=== PATIENT | female | born 1990 | race Caucasian/White ===

== ENCOUNTER 2017-10-20 20:08 | Emergency (ER) | payer OTHER ==
[~2017-10-20] VITALS: Ht 157.5 cm; Wt 90.7 kg
[~2017-10-20 20:08] MED LIST: ACYC800 PO; Aspirin EC325 MG PO; GABA300 PO; HYDACE5 PO; IBUP800 PO; Keflex500 MG PO; LORA2 PO; MECL25 PO; NAPR500 PO; NIFE30ER PO; Naprosyn500 MG PO; PANT40 PO; PENVK250 PO; Percocet 5-3251 EACH PO; RXLORA1 PO; SULTRIDS PO; TERC.4TC PV; Ultram50 MG PO; YASMIN
[2017-10-20 22:08] LABS: Influenza A Negative (NEGATIVE); Influenza B Negative (NEGATIVE)
[2017-10-20] MEDS ORDERED: AZIT250 PO (22:11)
[2017-10-20] MEDS ORDERED: ALBU90OI INH (22:11)
== END 2017-10-20 22:26 | disposition home or self-care (01) ==
LOC: ER 20:08
PROVIDERS: Emergency Medicine
DX: J45.901 Unspecified asthma with (acute) exacerbation (principal); F17.210 Nicotine dependence, cigarettes, uncomplicated
CPT/HCPCS: 71046; 87804; 99283

== ENCOUNTER 2017-11-12 11:14 | Emergency (ER) | payer OTHER ==
[~2017-11-12] VITALS: Ht 154.9 cm; Wt 86.2 kg
[~2017-11-12 11:14] MED LIST changes: +ALBU90OI INH; +AZIT250 PO
[2017-11-12 12:51] LABS: BASOPHILS ABSOLUTE AUTO 0.04 K/mm3 (0.00-0.23); BASOPHILS PERCENT AUTO 0 % (0-2); EOSINOPHILS ABSOLUTE AUTO 0.04 K/mm3 (0.00-0.68); EOSINOPHILS PERCENT AUTO 0 % (0-6); Hematocrit 41.1 % (33.0-51.0); Hemoglobin 13.7 g/dL (11.5-16.0); IMMATURE GRAN ABSOLUTE AUTO 0.08 K/mm3 (0.00-0.10); IMMATURE GRAN PERCENT AUTO 1 % (0-1); LYMPHOCYTES PERCENT AUTO 22 % (21-46); MONOCYTES ABSOLUTE AUTO 0.79 K/mm3 (0.16-1.47); MONOCYTES PERCENT AUTO 8 % (4-13); Mean Corpuscular HGB 32.2 pg (26.0-34.0); Mean Corpuscular HGB Conc 33.3 g/dL (31.5-36.5); Mean Corpuscular Volume 97 fL (80-100); Mean Platelet Volume 9.2 fL (9.1-12.4); NEUTROPHILS ABSOLUTE AUTO 7.22 K/mm3 (1.96-9.15); NEUTROPHILS PERCENT AUTO 69 % (41-73); Platelet Count 308 K/mm3 (150-400); RDW Coefficient Variation 12.1 % (11.7-14.2); RDW Standard Deviation 43.2 fL (35.1-46.3); Red Blood Cell Count 4.25 M/mm3 (3.80-5.20); White Blood Cell Count 10.47 K/mm3 (4.00-11.30)
[2017-11-12 13:14] LABS: Alanine Aminotransfer (ALT/SGP 36 U/L (12-78); Albumin/Globulin Ratio 1.1 (0.8-1.8); Alk Phos 69 U/L (50-136); Anion Gap 8 mmol/L (6-16); Aspartate Aminotrans (AST/SGOT 20 U/L (12-37); Bilirubin, Total 0.5 mg/dL (0.1-1.0); Blood Urea Nitrogen 6 mg/dL (8-24); Bun/Creatinine Ratio 10.5 (12.0-20.0); CO2, Blood 24 mmol/L (21-32); Chloride, Blood 108 mmol/L (98-108); Creatinine, Blood 0.57 mg/dL (0.40-1.00); Globulin, Blood 3.7 g/dL (2.2-4.0); Glomerular Filtration Rate >60 (60-); Glucose, Blood 98 mg/dL (70-99); Potassium, Blood 4.1 mmol/L (3.5-5.5); Sodium, Blood 140 mmol/L (136-145); Total Protein, Blood 7.7 g/dL (6.4-8.2); Troponin I <0.015 ng/mL (0.000-0.040)
[2017-11-12] MEDS ORDERED: Naproxen375 MG PO (14:02)
[2017-11-12] MEDS ORDERED: LIDO700A20 TOP (14:02)
[2017-11-12] MEDS ORDERED: Pepcid20 MG PO (14:02)
== END 2017-11-12 14:31 | disposition home or self-care (01) ==
LOC: ER 11:14
PROVIDERS: Emergency Medicine
DX: R07.89 Other chest pain (principal); R10.11 Right upper quadrant pain; J45.909 Unspecified asthma, uncomplicated; F17.200 Nicotine dependence, unspecified, uncomplicated
CPT/HCPCS: 36415; 71046; 76705; 80053; 83690; 84484; 84703; 85025; 93005; 93010; 99284

== ENCOUNTER 2018-03-31 21:40 | Observation (INO) | payer OTHER ==
[~2018-03-31] VITALS: Ht 177.8 cm; Wt 108.9 kg
[~2018-03-31 21:40] MED LIST changes: +LIDO700A20 TOP; +Naproxen375 MG PO; +Pepcid20 MG PO
[2018-03-31 21:55] LABS: BASOPHILS ABSOLUTE AUTO 0.07 K/mm3 (0.00-0.23); BASOPHILS PERCENT AUTO 1 % (0-2); EOSINOPHILS ABSOLUTE AUTO 0.18 K/mm3 (0.00-0.68); EOSINOPHILS PERCENT AUTO 1 % (0-6); Hematocrit 47.7 % (33.0-51.0); Hemoglobin 15.8 g/dL (11.5-16.0); IMMATURE GRAN ABSOLUTE AUTO 0.08 K/mm3 (0.00-0.10); IMMATURE GRAN PERCENT AUTO 1 % (0-1); LYMPHOCYTES ABSOLUTE AUTO 5.61 K/mm3 (0.84-5.20); LYMPHOCYTES PERCENT AUTO 41 % (21-46); MONOCYTES ABSOLUTE AUTO 0.69 K/mm3 (0.16-1.47); MONOCYTES PERCENT AUTO 5 % (4-13); Mean Corpuscular HGB Conc 33.1 g/dL (31.5-36.5); Mean Corpuscular Volume 97 fL (80-100); Mean Platelet Volume 9.3 fL (9.1-12.4); NEUTROPHILS ABSOLUTE AUTO 6.96 K/mm3 (1.96-9.15); NEUTROPHILS PERCENT AUTO 51 % (41-73); Platelet Count 431 K/mm3 (150-400); RDW Coefficient Variation 12.1 % (11.7-14.2); RDW Standard Deviation 43.1 fL (35.1-46.3); Red Blood Cell Count 4.94 M/mm3 (3.80-5.20); White Blood Cell Count 13.59 K/mm3 (4.00-11.30)
[2018-03-31 22:15] LABS: Source, Urine Voided
[2018-03-31 22:17] LABS: Ethanol (Alcohol), Blood, Med 297 mg/dL; Salicylate 5.2 mg/dL (2.8-20.0)
[2018-03-31 22:18] LABS: Alanine Aminotransfer (ALT/SGP 47 U/L (12-78); Albumin, Blood 4.2 g/dL (3.4-5.0); Albumin/Globulin Ratio 1.1 (0.8-1.8); Alk Phos 91 U/L (50-136); Anion Gap 15 mmol/L (6-16); Aspartate Aminotrans (AST/SGOT 31 U/L (12-37); Bilirubin, Total 0.2 mg/dL (0.1-1.0); Blood Urea Nitrogen 8 mg/dL (8-24); Bun/Creatinine Ratio 9.5 (12.0-20.0); CO2, Blood 18 mmol/L (21-32); Calcium, Blood 8.7 mg/dL (8.5-10.1); Chloride, Blood 113 mmol/L (98-108); Creatinine, Blood 0.84 mg/dL (0.40-1.00); Globulin, Blood 3.7 g/dL (2.2-4.0); Glomerular Filtration Rate >60 (60-); Glucose, Blood 113 mg/dL (70-99); Potassium, Blood 4.1 mmol/L (3.5-5.5); Sodium, Blood 146 mmol/L (136-145); Total Protein, Blood 7.9 g/dL (6.4-8.2)
[2018-03-31 22:19] LABS: Bilirubin, Urine Neg (Neg); Blood, Urine Neg (Neg); Glucose Qualitative, Urine Neg (Neg); Ketones, Urine Neg (Neg); Leukocyte Esterase, Urine Neg (Neg); Nitrite, Urine Neg (Neg); Protein, Urine Neg (Neg); Urobilinogen, Urine NORM (Normal)
[2018-03-31 22:23] LABS: Appearance, Urine Clear (Clear); Color, Urine Yellow (P-Yellow)
[2018-03-31 22:23] LABS: Acetaminophen, Random <2.0 ug/mL (10.0-30.0)
[2018-03-31 22:29] LABS: U Amphetamine Screen Not Detected; U Barbituate Screen Not Detected; U Benzodiazapine Screen Not Detected; U Buprenorphine Screen Not Detected; U Cannabinoids Screen DETECTED; U Cocaine Screen Not Detected; U Methadone Screen Not Detected; U Methamphetamine Screen Not Detected; U Opiates Screen Not Detected; U Oxycodone Screen Not Detected; U Phencyclidine Screen Not Detected; U Propoxyphene Screen Not Detected
== END 2018-04-01 11:21 | disposition home or self-care (01) ==
LOC: ER 21:40 → EOR 21:41
PROVIDERS: Emergency Medicine
DX: R45.851 Suicidal ideations (principal); R45.1 Restlessness and agitation; F10.10 Alcohol abuse, uncomplicated; J45.909 Unspecified asthma, uncomplicated; F17.200 Nicotine dependence, unspecified, uncomplicated; Z79.899 Other long term (current) drug therapy; Y90.8 Blood alcohol level of 240 mg/100 ml or more
CPT/HCPCS: 36415; 51701; 80053; 81003; 81025; 84443; 85025; 96374; 96375; 99285-25; G0378; G0480; J1200; J1630; J2060

== ENCOUNTER 2018-10-21 09:46 | Emergency (ER) | payer OTHER ==
[~2018-10-21] VITALS: Ht 154.9 cm; Wt 72.6 kg
[2018-10-21] MEDS ORDERED: BRINTELLIX10 MG PO (10:15)
[2018-10-21] MEDS ORDERED: CEPH500 PO (10:36)
== END 2018-10-21 10:40 | disposition home or self-care (01) ==
LOC: ER 09:46
DX: L03.115 Cellulitis of right lower limb (principal); Z79.899 Other long term (current) drug therapy; J45.909 Unspecified asthma, uncomplicated; F17.210 Nicotine dependence, cigarettes, uncomplicated
CPT/HCPCS: 99282

== ENCOUNTER → 2018-10-22 | Outpatient (CLI) | payer OTHER ==
[~2018-10-22] MED LIST changes: +BRINTELLIX10 MG PO; +CEPH500 PO
== END | disposition home or self-care (01) ==
LOC: LAB EV 11:00 → LAB SHORT 11:00
DX: L03.115 Cellulitis of right lower limb (principal)
CPT/HCPCS: 87070; 87077; 87147; 87186; 87205

== ENCOUNTER 2019-07-27 21:56 | Emergency (ER) | payer OTHER ==
[~2019-07-27] VITALS: Ht 154.9 cm; Wt 63.5 kg
[~2019-07-27 21:56] MED LIST changes: +Atarax10 MG; +BUSP10 PO; +DULO30 PO; +ONDA4ODT MM; +TRAZ50
[2019-07-27] MEDS ORDERED: ZOLOFT50 MG PO (22:19)
[2019-07-27] MEDS ORDERED: CLON.1 PO (22:19)
[2019-07-27] MEDS ORDERED: ARIPIPRAZOLE5 MG PO (22:19)
[2019-07-27] MEDS ORDERED: Vibramycin100 MG PO (22:30)
== END 2019-07-27 23:12 | disposition home or self-care (01) ==
LOC: ER 21:56
DX: L03.113 Cellulitis of right upper limb (principal); F17.210 Nicotine dependence, cigarettes, uncomplicated; Z79.899 Other long term (current) drug therapy
CPT/HCPCS: 99283

== ENCOUNTER → 2019-08-20 | Outpatient (CLI) | payer OTHER ==
[~2019-08-20] MED LIST changes: +ARIPIPRAZOLE5 MG PO; +Bactrim 400-801 EACH PO; +CLON.1 PO; +TRAZ50 PO; +Vibramycin100 MG PO; +ZOLOFT50 MG PO
[2019-08-20 15:23] LABS: G. vaginalis (DNA Probe) Positive (NEGATIVE); T. vaginalis (DNA Probe) Negative (NEGATIVE)
[2019-08-20 15:24] LABS: Candida species (DNA Probe) Negative (NEGATIVE)
[2019-08-22 15:07] LABS: HPV 16 Negative (Negative); HPV 18 Negative (Negative); HPV OTHER HR TYPES Negative (Negative)
[2019-08-22 21:06] LABS: CHLAMYDIA TRACHOMATIS, NAA Negative (Negative); NEISSERIA GONORRHOEAE, NAA Negative (Negative)
== END | disposition home or self-care (01) ==
LOC: LAB 09:50 → LAB SHORT 09:50
PROVIDERS: Student in an Organized Health Care Education/Training Program
DX: Z11.3 Encounter for screening for infections with a predominantly sexual mode of transmission (principal); Z12.4 Encounter for screening for malignant neoplasm of cervix; N89.8 Other specified noninflammatory disorders of vagina
CPT/HCPCS: 87480; 87491; 87510; 87591; 87624; 87660; G0123

== ENCOUNTER 2019-09-15 01:07 | Emergency (ER) | payer OTHER ==
[~2019-09-15] VITALS: Ht 154.9 cm; Wt 68.0 kg
[~2019-09-15 01:07] MED LIST changes: -Bactrim 400-801 EACH PO; -TRAZ50 PO
[2019-09-15] MEDS ORDERED: Bactrim 400-801 EACH PO (03:09)
[2019-09-15] MEDS ORDERED: TRAZ50 PO (23:48)
== END 2019-09-15 03:22 | disposition home or self-care (01) ==
LOC: ER 01:07
DX: L02.413 Cutaneous abscess of right upper limb (principal); F19.10 Other psychoactive substance abuse, uncomplicated; K21.9 Gastro-esophageal reflux disease without esophagitis; F17.210 Nicotine dependence, cigarettes, uncomplicated; Z79.899 Other long term (current) drug therapy
CPT/HCPCS: 10061; 99282-25; A9270-GY

== ENCOUNTER 2019-09-15 22:47 | Emergency (ER) | payer OTHER ==
[~2019-09-15] VITALS: Ht 154.9 cm; Wt 68.0 kg
[~2019-09-15 22:47] MED LIST changes: +Bactrim 400-801 EACH PO
[2019-09-15] MEDS ORDERED: TRAZ50 PO (23:48)
== END 2019-09-16 00:02 | disposition home or self-care (01) ==
LOC: ER 22:47
DX: Z48.817 Encounter for surgical aftercare following surgery on the skin and subcutaneous tissue (principal); Z79.899 Other long term (current) drug therapy; F17.210 Nicotine dependence, cigarettes, uncomplicated
CPT/HCPCS: 99282

== ENCOUNTER 2020-02-07 21:36 | Inpatient (IN) | payer OTHER ==
[~2020-02-07] VITALS: Ht 154.9 cm; Wt 75.5 kg
[~2020-02-07 21:36] MED LIST changes: +TRAZ50 PO
[2020-02-07] MEDS ORDERED: BUSP10 PO (22:01)
[2020-02-07 23:13] LABS: Alanine Aminotransfer (ALT/SGP 22 U/L (12-78); Albumin, Blood 3.1 g/dL (3.4-5.0); Albumin/Globulin Ratio 0.9 (0.8-1.8); Alk Phos 72 U/L (50-136); Anion Gap 8 mmol/L (6-16); Aspartate Aminotrans (AST/SGOT 12 U/L (12-37); Beta HCG, Quantitative, Serum <1 mIU/mL (0-3); Bilirubin, Total 0.1 mg/dL (0.1-1.0); Blood Urea Nitrogen 9 mg/dL (8-24); Bun/Creatinine Ratio 14.8 (12.0-20.0); CO2, Blood 24 mmol/L (21-32); Calcium, Blood 8.2 mg/dL (8.5-10.1); Chloride, Blood 110 mmol/L (98-108); Creatinine, Blood 0.61 mg/dL (0.40-1.00); Globulin, Blood 3.4 g/dL (2.2-4.0); Glomerular Filtration Rate >60 (60-); Glucose, Blood 94 mg/dL (70-99); Potassium, Blood 3.8 mmol/L (3.5-5.5); Sodium, Blood 142 mmol/L (136-145); Total Protein, Blood 6.5 g/dL (6.4-8.2)
[2020-02-07 23:17] LABS: BASOPHILS ABSOLUTE AUTO 0.02 K/mm3 (0.00-0.23); BASOPHILS PERCENT AUTO 0 % (0-2); EOSINOPHILS ABSOLUTE AUTO 0.61 K/mm3 (0.00-0.68); EOSINOPHILS PERCENT AUTO 4 % (0-6); Hematocrit 40.3 % (33.0-51.0); Hemoglobin 12.9 g/dL (11.5-16.0); IMMATURE GRAN ABSOLUTE AUTO 0.06 K/mm3 (0.00-0.10); IMMATURE GRAN PERCENT AUTO 0 % (0-1); LYMPHOCYTES ABSOLUTE AUTO 2.72 K/mm3 (0.84-5.20); LYMPHOCYTES PERCENT AUTO 19 % (21-46); MONOCYTES ABSOLUTE AUTO 1.01 K/mm3 (0.16-1.47); MONOCYTES PERCENT AUTO 7 % (4-13); Mean Corpuscular Volume 97 fL (80-100); NEUTROPHILS ABSOLUTE AUTO 9.83 K/mm3 (1.96-9.15); NEUTROPHILS PERCENT AUTO 69 % (41-73); Platelet Count 307 K/mm3 (150-400); RDW Coefficient Variation 12.3 % (11.7-14.2); Red Blood Cell Count 4.16 M/mm3 (3.80-5.20); White Blood Cell Count 14.25 K/mm3 (4.00-11.30)
--- NOTE | 2020-02-08 03:02 | NUR ---
ASSUMED CARE OF PATIENT FROM GIRISH LOPEZ @ 0288.
--- NOTE | 2020-02-08 03:20 | NUR ---
2346 ER DOC UP TO PLACE CENTRAL LINE.
--- NOTE | 2020-02-08 03:45 | NUR ---
0345 CENTRAL LINE PLACED. AWAINTING CXR AND READ FROM DOC. ALERTED DYER ASSISTANT OF STAT ORDER
[2020-02-08] MEDS ORDERED: Loxapine5 MG PO (04:11)
--- NOTE | 2020-02-08 04:15 | NUR ---
RECEIVED CALL FROM DR PAT LOUIS TO USE CENTRAL LINE AFTER VERIFYING PLACEMENT VIA CXR.
--- NOTE | 2020-02-08 04:36 | NUR ---
0436 PATIENT D/C'D FROM CURRENT ROOM TO SURGICAL SUITE FOR SURGERY
--- NOTE | 2020-02-08 04:45 | NUR ---
044 ALL PATIENT BELONGINGS TAKEN TO ROOM 211]
--- NOTE | 2020-02-08 05:10 | NUR ---
0510 REPORT GIVEN TO ZORAN STOUT, ICU
--- NOTE | 2020-02-08 06:48 | NUR ---
REPORT GIVEN TO NETTE SALES ASSOCIATE KEY HOLDER. PT WAS TRANSFERED TO 211 VIA STRETCHER. PT TRANSFERD SELF TO UNIT BED. PT A&0X3, ABLE TO FOLLOW DIRECTIONS. PT IN SIT WITH HR IN THE 110-120'S. PT ON RA WITH SPO2 AT 97%. PT ORIENTED TO ROOM.
--- NOTE | 2020-02-08 07:00 | NUR ---
PT ARRIVED TO ROOM FROM ICU RECOVERY. PT A/O, VSS. DRESSING CDI, CAP REFILL WNL, PT DENIES N/T, REP PAIN ANDERS. PT ORIENTED TO ROOM/CALL LIGHT. BEDSIDE REPORT GIVEN TO DAY RN.
--- NOTE | 2020-02-08 07:31 | NUR ---
ASSUMED PATIENT CARE. PATIENT RESTING COMFORTABLY IN BED. DRESSING IN PLACE, EXTREMITY SENSATION AND CAP REFILL CHECKED AND PRESENT. NO NEW DISCHARGE NOTED. PATIENT CONVERSING WITH NURSING STAFF, NO SIGNS OF ACUTE DISTRESS. WCTM.
--- NOTE | 2020-02-08 18:38 | NUR ---
PATIENT WENT TO OR TODAY FOR I&D. VSS, PAIN WELL MANAGED WITH IV TORODOL. INCREASED REDNESS NOTED AT PROXIMAL END OF LUE BANDAGING, NEW BORDER OUTLINED WITH MARKER THIS SHIFT. LUE SENSATION INTACT. PATIENT TOLERATED PO INTAKE WELL THIS SHIFT. PLAN IS TO CONTINUE IV ABX AND MONITOR FOR S/S OF INFECTION.
[2020-02-08 20:26] LABS: Vancomycin, Trough 9.3 ug/mL (5.0-10.0)
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
[2020-02-09 04:31] LABS: BASOPHILS ABSOLUTE AUTO 0.03 K/mm3 (0.00-0.23); BASOPHILS PERCENT AUTO 0 % (0-2); EOSINOPHILS PERCENT AUTO 1 % (0-6); Hematocrit 32.8 % (33.0-51.0); Hemoglobin 10.5 g/dL (11.5-16.0); IMMATURE GRAN ABSOLUTE AUTO 0.15 K/mm3 (0.00-0.10); IMMATURE GRAN PERCENT AUTO 1 % (0-1); LYMPHOCYTES ABSOLUTE AUTO 2.22 K/mm3 (0.84-5.20); LYMPHOCYTES PERCENT AUTO 12 % (21-46); MONOCYTES ABSOLUTE AUTO 1.45 K/mm3 (0.16-1.47); MONOCYTES PERCENT AUTO 8 % (4-13); Mean Corpuscular HGB 30.7 pg (26.0-34.0); Mean Corpuscular Volume 96 fL (80-100); Mean Platelet Volume 9.2 fL (9.1-12.4); NEUTROPHILS ABSOLUTE AUTO 14.93 K/mm3 (1.96-9.15); NEUTROPHILS PERCENT AUTO 79 % (41-73); Platelet Count 286 K/mm3 (150-400); RDW Coefficient Variation 11.9 % (11.7-14.2); RDW Standard Deviation 41.7 fL (35.1-46.3); Red Blood Cell Count 3.42 M/mm3 (3.80-5.20); White Blood Cell Count 18.98 K/mm3 (4.00-11.30)
[2020-02-09 04:51] LABS: Alanine Aminotransfer (ALT/SGP 19 U/L (12-78); Albumin, Blood 2.6 g/dL (3.4-5.0); Albumin/Globulin Ratio 0.9 (0.8-1.8); Alk Phos 57 U/L (50-136); Anion Gap 7 mmol/L (6-16); Aspartate Aminotrans (AST/SGOT 15 U/L (12-37); Bilirubin, Total 0.2 mg/dL (0.1-1.0); Blood Urea Nitrogen 13 mg/dL (8-24); Bun/Creatinine Ratio 16.5 (12.0-20.0); CO2, Blood 26 mmol/L (21-32); Calcium, Blood 7.9 mg/dL (8.5-10.1); Chloride, Blood 111 mmol/L (98-108); Creatinine, Blood 0.79 mg/dL (0.40-1.00); Glomerular Filtration Rate >60 (60-); Glucose, Blood 132 mg/dL (70-99); Potassium, Blood 3.7 mmol/L (3.5-5.5); Sodium, Blood 144 mmol/L (136-145); Total Protein, Blood 5.6 g/dL (6.4-8.2)
--- NOTE | 2020-02-09 05:30 | NUR ---
SHIFT SUMMARY LYING IN SEMI FOWLERS WITH EYES CLOSED. WHEN HANGING 0500AM DOSE OF VANC, PT APPOLOGISED FOR HER BEHAVIOR EARLIER. NURSING ENSURED HER THAT IT WAS HEALTHIER TO LET HER EMOTIONS OUT THAN TO BUNDLE THEM UP INSIDE AND SUPRESS THEM. PAIN MEDS GIVEN X2 THIS SHIFT AND ABLE TO MANAGE PAIN. DRESSING REPLACED X1 DUE TO SLIPAGE, TOLERATED WELL. SS CONSULT PLACED IN COMPUTER PT IS ABOUT TO BECOME HOMELESS IN LESS THAN A WEEK. IMPROVEMENT NOTED IN REDNESS PROXIMAL TO WOUND ON LEFT ARM. DENEIS FURTHER NEEDS OR WANTS AT THIS TIME. SAFETY MEASURES IN PLACE. WILL CONTINUE TO MONITOR AND GIVE HAND OFF TO ONCOMING SHIFT USING SBAR DURING BEDSIDE REPORT.
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
--- NOTE | 2020-02-10 03:59 | NUR ---
SHIFT SUMMARY: PT POD#2 FOR I&D OF ABSCESS IN SAL. PT VERY ANXIOUS IN BEGINNING OF SHIFT AND REQUESTED TO CHANGE ROOMS. PT NOW IN A DIFFERENT ROOM AND REPORTS FEELING LESS ANXIOUS. PT ABLE TO REST MOST OF NIGHT. MEDICATED WITH 5MG OXY ONCE FOR PAIN. GIVEN SCHEDULED TORADOL PER EMAR. DRESSING CHANGED WITH GAUZE AND AUGUST WRAP AT APPROX 0315. FLUIDS TKO WITH ABX INFUSING. NO CONCERNS AT THIS TIME.
[2020-02-11 04:48] LABS: BASOPHILS ABSOLUTE AUTO 0.04 K/mm3 (0.00-0.23); BASOPHILS PERCENT AUTO 1 % (0-2); EOSINOPHILS ABSOLUTE AUTO 0.64 K/mm3 (0.00-0.68); EOSINOPHILS PERCENT AUTO 8 % (0-6); Hematocrit 37.9 % (33.0-51.0); IMMATURE GRAN ABSOLUTE AUTO 0.04 K/mm3 (0.00-0.10); IMMATURE GRAN PERCENT AUTO 1 % (0-1); LYMPHOCYTES ABSOLUTE AUTO 3.18 K/mm3 (0.84-5.20); LYMPHOCYTES PERCENT AUTO 38 % (21-46); MONOCYTES ABSOLUTE AUTO 0.54 K/mm3 (0.16-1.47); MONOCYTES PERCENT AUTO 7 % (4-13); Mean Corpuscular HGB 30.6 pg (26.0-34.0); Mean Corpuscular HGB Conc 31.7 g/dL (31.5-36.5); Mean Corpuscular Volume 97 fL (80-100); Mean Platelet Volume 9.1 fL (9.1-12.4); NEUTROPHILS ABSOLUTE AUTO 3.92 K/mm3 (1.96-9.15); NEUTROPHILS PERCENT AUTO 47 % (41-73); Platelet Count 323 K/mm3 (150-400); RDW Coefficient Variation 11.9 % (11.7-14.2); RDW Standard Deviation 42.3 fL (35.1-46.3); Red Blood Cell Count 3.92 M/mm3 (3.80-5.20); White Blood Cell Count 8.36 K/mm3 (4.00-11.30)
[2020-02-11 05:09] LABS: Anion Gap 2 mmol/L (6-16); Blood Urea Nitrogen 14 mg/dL (8-24); Bun/Creatinine Ratio 18.9 (12.0-20.0); CO2, Blood 30 mmol/L (21-32); Calcium, Blood 7.8 mg/dL (8.5-10.1); Chloride, Blood 108 mmol/L (98-108); Creatinine, Blood 0.74 mg/dL (0.40-1.00); Glomerular Filtration Rate >60 (60-); Glucose, Blood 99 mg/dL (70-99); Potassium, Blood 4.3 mmol/L (3.5-5.5); Sodium, Blood 140 mmol/L (136-145)
--- NOTE | 2020-02-11 06:20 | NUR ---
SHIFT SUMMARY: PT APPEARS TO BE RESTING COMFORTABLY THROUGHOUT NIGHT. MEDICATED WITH 5MG OXY ONCE. DRESSING TO SAL CHANGED PER ORDERS. PT ABLE TO WIGGLE FINGERS AND DENIES N/T. INCISION WNL WITH A SCANT AMOUNT OF SEROUS DRAINAGE. PT AMBULATED OUTSIDE ONCE TO SMOKE. ALL VS STABLE.
--- NOTE | 2020-02-11 07:51 | NUR ---
PAIN PT REPORTS PAIN 3/10 TO LEFT UPPER ARM, DECLINES PAIN MEDS
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
--- NOTE | 2020-02-11 12:09 | NUR ---
sleeping pt sleeping, awakened for lunch but declines at this time. pt states she drove self to hospital and will drive self home. will wait until patient more awake then plan to discharger
[2020-02-11] MEDS ORDERED: AMOCLA875 PO (13:30)
[2020-02-11] MEDS ORDERED: IBUP600 PO (13:31)
--- NOTE | 2020-02-11 14:48 | NUR ---
pt remains very sleepy, arouses to verbal stimuli but returns to sleep within a few minutes if not conversing. 1400 clonidine and buspar held. will discharge pt when she is more awake
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
--- NOTE | 2020-02-11 18:31 | NUR ---
SPOKE WITH DR MONTANA REGARDING PT TEARFUL, EXPRESSING HOPELESSNESS AND THAT SHE IS NOT GOING TO [facility] DYER HER DISCHARGE MEDS. CANCEL DISCHARGE ORDERS RECEIVED. SPOKE WITH ER REGARDING PSYCH CONSULT. PT IS AGREEABLE TO PLAN TO CANCEL DISCHARGE
--- NOTE | 2020-02-12 04:48 | NUR ---
SHIFT SUMMARY POD 3 I&D [id number], VSS. IND IN ROOM PT UP AND VOIDING IN URINAL. DRESSING CHANGED DURING SHIFT. PT TOLERATED WELL. SLIGHT REDNESS PT REPORTS ELBOW FEELING BETTER. MEDICATED FOR PAIN X2 DURING SHIFT. TOLERATED WELL. PT STATES SHE WAS ABLE TO SLEEP FOR MOST OF THE NIGHT.
--- NOTE | 2020-02-12 07:20 | NUR ---
recvd report from previous rn zoay, pt sleeping in bed, call light within rech, bed in lowest position, bed rails up x 2
--- NOTE | 2020-02-12 14:41 | NUR ---
discussed disharge plan with pt, encouraged her to f/u with [facility] per MD orders. pt indicated she would f/u when she could with verbal/gestured response. pt declined offered taxi transport, but did request this rn to contact MD for prescription for pain medication. This RN called hospitalist with request, no orders received but instructions to use OTC Motrin and listen to the pain, do not overdo it.
--- NOTE | 2020-02-12 15:45 | NUR ---
provided pt with discharge teaching and printed material, referrals for [facility] and [facility] provided, encouraged pt to followup with these services. pt showered herself prior to leaving. This RN assisted pt with transporting her belongings to awaiting vehicle. pt deferred wheelchair, preferred to walk herself.
== END 2020-02-12 15:30 | disposition home or self-care (01) | DRG 854 ==
LOC: ER 21:36 → MEDS 02-08 01:45 → SURS 02-08 01:45 → MEDS 02-08 02:02 → SURS 02-08 04:36 → ICUW 02-08 05:51 → SURS 02-08 06:12
PROVIDERS: Emergency Medicine; Internal Medicine; Orthopaedic Surgery; ADMIT Internal Medicine
PROC: 0JBH0ZZ Excision of Left Lower Arm Subcutaneous Tissue and Fascia, Open Approach (ICD-10-PCS; principal; 2020-02-08 05:00)
DX: A41.51 Sepsis due to Escherichia coli [E. coli] (principal); L02.414 Cutaneous abscess of left upper limb; R45.851 Suicidal ideations; L03.114 Cellulitis of left upper limb; J45.909 Unspecified asthma, uncomplicated; K21.9 Gastro-esophageal reflux disease without esophagitis; F17.210 Nicotine dependence, cigarettes, uncomplicated; I73.1 Thromboangiitis obliterans [Buerger's disease]; F15.10 Other stimulant abuse, uncomplicated; I10 Essential (primary) hypertension; R45.1 Restlessness and agitation; Z59.0 Homelessness
CPT/HCPCS: 36415; 36556; 73200; 76882; 80048; 80053; 80202; 83605; 84702; 85025; 87040; 87070; 87075; 87076; 87205; 90471; 90714; 99285-25; A9270; A9270-GY; C1751; J0295; J1100; J1885; J2250; J2370; J2405; J2543; J2704; J3010; J3370; J7050; J7120

== ENCOUNTER 2020-02-14 10:24 | Emergency (ER) | payer OTHER ==
[~2020-02-14] VITALS: Ht 154.9 cm; Wt 72.6 kg
[~2020-02-14 10:24] MED LIST changes: +AMOCLA875 PO; +IBUP600 PO; +Loxapine5 MG PO
[2020-02-14 11:54] LABS: BASOPHILS ABSOLUTE AUTO 0.09 K/mm3 (0.00-0.23); BASOPHILS PERCENT AUTO 1 % (0-2); EOSINOPHILS ABSOLUTE AUTO 0.16 K/mm3 (0.00-0.68); EOSINOPHILS PERCENT AUTO 1 % (0-6); Hematocrit 41.4 % (33.0-51.0); Hemoglobin 13.6 g/dL (11.5-16.0); IMMATURE GRAN ABSOLUTE AUTO 0.26 K/mm3 (0.00-0.10); IMMATURE GRAN PERCENT AUTO 2 % (0-1); LYMPHOCYTES ABSOLUTE AUTO 3.37 K/mm3 (0.84-5.20); LYMPHOCYTES PERCENT AUTO 24 % (21-46); MONOCYTES ABSOLUTE AUTO 0.86 K/mm3 (0.16-1.47); MONOCYTES PERCENT AUTO 6 % (4-13); Mean Corpuscular HGB 30.6 pg (26.0-34.0); Mean Corpuscular HGB Conc 32.9 g/dL (31.5-36.5); Mean Platelet Volume 8.9 fL (9.1-12.4); NEUTROPHILS ABSOLUTE AUTO 9.53 K/mm3 (1.96-9.15); NEUTROPHILS PERCENT AUTO 67 % (41-73); Platelet Count 361 K/mm3 (150-400); RDW Standard Deviation 41.1 fL (35.1-46.3); Red Blood Cell Count 4.45 M/mm3 (3.80-5.20); White Blood Cell Count 14.27 K/mm3 (4.00-11.30)
[2020-02-14 12:07] LABS: Mean Corpuscular Volume 93 fL (80-100)
== END 2020-02-14 12:56 | disposition home or self-care (01) ==
LOC: ER 10:24
PROVIDERS: Emergency Medicine
DX: L03.114 Cellulitis of left upper limb (principal); J45.909 Unspecified asthma, uncomplicated; K21.9 Gastro-esophageal reflux disease without esophagitis; Z79.2 Long term (current) use of antibiotics; Z79.899 Other long term (current) drug therapy; F17.210 Nicotine dependence, cigarettes, uncomplicated
CPT/HCPCS: 36415; 85025; 96365; 96375; 99283-25; J0295; J1885

== ENCOUNTER 2020-03-20 01:39 | Emergency (ER) | payer OTHER ==
[~2020-03-20] VITALS: Ht 154.9 cm; Wt 72.6 kg
== END 2020-03-20 05:15 | disposition left against medical advice (07) ==
LOC: ER 01:39
DX: S42.211A Unspecified displaced fracture of surgical neck of right humerus, initial encounter for closed fracture (principal); Z79.2 Long term (current) use of antibiotics; Z79.899 Other long term (current) drug therapy; F17.210 Nicotine dependence, cigarettes, uncomplicated; W19.XXXA Unspecified fall, initial encounter
CPT/HCPCS: 29105; 71045; 73030; 99283-25

== ENCOUNTER 2020-03-20 08:04 | Emergency (ER) | payer OTHER ==
[~2020-03-20] VITALS: Ht 154.9 cm; Wt 72.6 kg
== END 2020-03-20 09:50 | disposition left against medical advice (07) ==
LOC: ER 08:04
DX: M79.601 Pain in right arm (principal); K21.9 Gastro-esophageal reflux disease without esophagitis; J45.909 Unspecified asthma, uncomplicated; Z79.899 Other long term (current) drug therapy; F17.210 Nicotine dependence, cigarettes, uncomplicated; W19.XXXA Unspecified fall, initial encounter
CPT/HCPCS: 96372; 99282-25; J1170; J1630; J1885

== ENCOUNTER 2020-03-29 06:35 | Day surgery (SDC) | payer OTHER ==
[~2020-03-29] VITALS: Ht 154.9 cm; Wt 75.3 kg
--- NOTE | 2020-03-29 07:06 | NUR ---
PT STATES THAT SHE IS WORKING WITH [facility] AND DOESN'T NEED TO SPEAK WITH ANYONE TODAY.
--- NOTE | 2020-03-29 08:31 | NUR ---
03/29/20 0831 Elaine Joy POSITION VERIFIED BY SURGEON AND ANESTHESIA. NO PAS ON LEFT LEG R/T IV IN LEFT FOOT.
--- NOTE | 2020-03-29 08:48 | NUR ---
03/29/20 0848 Rosalva Henriquez UNABLE TO CHANGE IV LOCATION UNDER I&O TO LEFT FOOT.
== END 2020-03-29 11:37 | disposition home or self-care (01) ==
LOC: ORSCSDS 06:35
PROVIDERS: Orthopaedic Surgery
PROC: 0PSF04Z Reposition Right Humeral Shaft with Internal Fixation Device, Open Approach (ICD-10-PCS; principal; 2020-03-29 07:30)
DX: S42.201A Unspecified fracture of upper end of right humerus, initial encounter for closed fracture (principal); Z86.14 Personal history of Methicillin resistant Staphylococcus aureus infection; I10 Essential (primary) hypertension; J45.909 Unspecified asthma, uncomplicated; F17.210 Nicotine dependence, cigarettes, uncomplicated; K21.9 Gastro-esophageal reflux disease without esophagitis
CPT/HCPCS: C1713; J0171; J0690; J0735; J1100; J1885; J2250; J2370; J2405; J2704; J2710; J2795; J3010; J3370; J7120

== ENCOUNTER 2020-06-11 23:52 | Emergency (ER) | payer OTHER ==
[~2020-06-11] VITALS: Ht 154.9 cm; Wt 77.1 kg
[2020-06-13] MEDS ORDERED: Cleocin HCl300 MG PO (16:49)
[2020-06-13] MEDS ORDERED: Benadryl 50 mg50 MG PO (16:49)
[2020-06-13] MEDS ORDERED: Pepcid20 MG PO (16:49)
[2020-06-13] MEDS ORDERED: Prednisone20 MG PO (16:49)
== END 2020-06-12 00:52 | disposition home or self-care (01) ==
LOC: ER 23:52
DX: L25.9 Unspecified contact dermatitis, unspecified cause (principal); J45.909 Unspecified asthma, uncomplicated; K21.9 Gastro-esophageal reflux disease without esophagitis; F17.210 Nicotine dependence, cigarettes, uncomplicated; Z79.899 Other long term (current) drug therapy
CPT/HCPCS: 99282; J3301

== ENCOUNTER 2020-06-13 13:52 | Emergency (ER) | payer OTHER ==
[~2020-06-13] VITALS: Ht 157.5 cm; Wt 72.6 kg
[2020-06-13] MEDS ORDERED: Benadryl 50 mg50 MG PO (16:49)
[2020-06-13] MEDS ORDERED: Pepcid20 MG PO (16:49)
[2020-06-13] MEDS ORDERED: Cleocin HCl300 MG PO (16:49)
[2020-06-13] MEDS ORDERED: Prednisone20 MG PO (16:49)
[2020-06-14] MEDS ORDERED: CEPH500 PO (20:29)
== END 2020-06-13 17:10 | disposition home or self-care (01) ==
LOC: ER 13:52
DX: T78.40XA Allergy, unspecified, initial encounter (principal); L08.9 Local infection of the skin and subcutaneous tissue, unspecified; R21 Rash and other nonspecific skin eruption; K21.9 Gastro-esophageal reflux disease without esophagitis; J45.909 Unspecified asthma, uncomplicated; Z79.899 Other long term (current) drug therapy
CPT/HCPCS: 96374; 96375; 99283-25; J1200; J2930

== ENCOUNTER 2020-06-14 18:45 | Emergency (ER) | payer OTHER ==
[~2020-06-14] VITALS: Ht 157.5 cm; Wt 76.2 kg
[~2020-06-14 18:45] MED LIST changes: +Benadryl 50 mg50 MG PO; +Cleocin HCl300 MG PO; +Prednisone20 MG PO
[2020-06-14] MEDS ORDERED: CEPH500 PO (20:29)
== END 2020-06-14 20:39 | disposition home or self-care (01) ==
LOC: ER 18:45
DX: L25.9 Unspecified contact dermatitis, unspecified cause (principal); R11.2 Nausea with vomiting, unspecified; R10.9 Unspecified abdominal pain; T50.905A Adverse effect of unspecified drugs, medicaments and biological substances, initial encounter; J45.909 Unspecified asthma, uncomplicated; K21.9 Gastro-esophageal reflux disease without esophagitis; F17.210 Nicotine dependence, cigarettes, uncomplicated; Z79.899 Other long term (current) drug therapy
CPT/HCPCS: 99283

== ENCOUNTER → 2020-07-29 | Outpatient (CLI) | payer OTHER ==
[2020-07-30 09:45] LABS: Candida species (DNA Probe) Negative (NEGATIVE); G. vaginalis (DNA Probe) Negative (NEGATIVE); T. vaginalis (DNA Probe) Negative (NEGATIVE)
[2020-07-31 08:51] LABS: CHLAMYDIA TRACHOMATIS, NAA Negative (Negative); HPV 16 Negative (Negative); HPV 18 Negative (Negative); HPV OTHER HR TYPES Negative (Negative)
== END | disposition home or self-care (01) ==
LOC: LAB SHORT 13:56 → LAB 13:56
PROVIDERS: Student in an Organized Health Care Education/Training Program
DX: N92.6 Irregular menstruation, unspecified (principal); N89.8 Other specified noninflammatory disorders of vagina; R10.2 Pelvic and perineal pain
CPT/HCPCS: 87480; 87491; 87510; 87591; 87624; 87660; 88175

== ENCOUNTER 2020-09-28 03:02 | Emergency (ER) | payer OTHER ==
[~2020-09-28] VITALS: Ht 157.5 cm; Wt 72.6 kg
== END 2020-09-28 05:22 | disposition home or self-care (01) ==
LOC: ER 03:02
DX: L98.9 Disorder of the skin and subcutaneous tissue, unspecified (principal); F15.90 Other stimulant use, unspecified, uncomplicated; J45.909 Unspecified asthma, uncomplicated; K21.9 Gastro-esophageal reflux disease without esophagitis; F17.210 Nicotine dependence, cigarettes, uncomplicated; Z79.899 Other long term (current) drug therapy
CPT/HCPCS: 99284; A9270

== ENCOUNTER 2020-10-01 23:56 | Emergency (ER) | payer OTHER ==
[~2020-10-01] VITALS: Ht 157.5 cm; Wt 72.6 kg
== END 2020-10-02 00:10 | disposition home or self-care (01) ==
LOC: ER 23:56
DX: F15.10 Other stimulant abuse, uncomplicated (principal); F45.8 Other somatoform disorders; J45.909 Unspecified asthma, uncomplicated; K21.9 Gastro-esophageal reflux disease without esophagitis; F17.210 Nicotine dependence, cigarettes, uncomplicated; Z79.899 Other long term (current) drug therapy
CPT/HCPCS: 99283

== ENCOUNTER 2020-10-29 15:40 | Emergency (ER) | payer OTHER ==
[~2020-10-29] VITALS: Ht 154.9 cm; Wt 72.6 kg
== END 2020-10-29 22:00 | disposition home or self-care (01) ==
LOC: ER 15:40
DX: L98.9 Disorder of the skin and subcutaneous tissue, unspecified (principal); F17.210 Nicotine dependence, cigarettes, uncomplicated; K21.9 Gastro-esophageal reflux disease without esophagitis; Z79.899 Other long term (current) drug therapy
CPT/HCPCS: 99282

== ENCOUNTER 2021-01-29 16:41 | Emergency (ER) | payer OTHER ==
[~2021-01-29] VITALS: Ht 154.9 cm; Wt 66.7 kg
== END 2021-01-29 18:05 | disposition home or self-care (01) ==
LOC: ER 16:41
DX: Z00.00 Encounter for general adult medical examination without abnormal findings (principal); F17.210 Nicotine dependence, cigarettes, uncomplicated; Z79.899 Other long term (current) drug therapy
CPT/HCPCS: 99282

== ENCOUNTER 2021-04-06 03:36 | Emergency (ER) | payer OTHER ==
[~2021-04-06] VITALS: Ht 154.9 cm; Wt 68.0 kg
[2021-04-06] MEDS ORDERED: GABA100 PO (03:54)
== END 2021-04-06 04:03 | disposition home or self-care (01) ==
LOC: ER 03:36
DX: L98.9 Disorder of the skin and subcutaneous tissue, unspecified (principal); F17.210 Nicotine dependence, cigarettes, uncomplicated; Z79.899 Other long term (current) drug therapy
CPT/HCPCS: 99282

== ENCOUNTER 2021-04-10 02:58 | Emergency (ER) | payer OTHER ==
[~2021-04-10] VITALS: Ht 154.9 cm; Wt 68.0 kg
[~2021-04-10 02:58] MED LIST changes: +GABA100 PO
[2021-04-10] MEDS ORDERED: SERT100 (03:11)
[2021-04-10] MEDS ORDERED: BUSP5 (03:12)
[2021-04-10] MEDS ORDERED: OLAN10 PO (03:12)
[2021-04-10] MEDS ORDERED: GABA100 (03:12)
== END 2021-04-10 03:41 | disposition home or self-care (01) ==
LOC: ER 02:58
DX: L98.9 Disorder of the skin and subcutaneous tissue, unspecified (principal); F17.210 Nicotine dependence, cigarettes, uncomplicated; Z79.899 Other long term (current) drug therapy
CPT/HCPCS: 99282

== ENCOUNTER 2021-04-13 14:04 | Emergency (ER) | payer OTHER ==
[~2021-04-13 14:04] MED LIST changes: +BUSP5; +GABA100; +OLAN10 PO; +SERT100
== END 2021-04-13 15:22 | disposition left against medical advice (07) ==
LOC: ER 14:04
DX: Z53.21 Procedure and treatment not carried out due to patient leaving prior to being seen by health care provider (principal)

== ENCOUNTER 2021-04-13 23:23 | Emergency (ER) | payer OTHER ==
[~2021-04-13] VITALS: Ht 154.9 cm; Wt 68.0 kg
== END 2021-04-14 02:34 | disposition left against medical advice (07) ==
LOC: ER 23:23
DX: Z53.21 Procedure and treatment not carried out due to patient leaving prior to being seen by health care provider (principal)

== ENCOUNTER 2021-04-16 04:38 | Emergency (ER) | payer OTHER | END 2021-04-16 05:03 | disposition left against medical advice (07) | LOC: ER 04:38 | DX: Z53.21 Procedure and treatment not carried out due to patient leaving prior to being seen by health care provider (principal) ==

== ENCOUNTER 2021-04-27 21:38 | Emergency (ER) | payer OTHER ==
[~2021-04-27] VITALS: Ht 154.9 cm; Wt 68.0 kg
== END 2021-04-27 22:06 | disposition home or self-care (01) ==
LOC: ER 21:38
DX: S01.01XA Laceration without foreign body of scalp, initial encounter (principal); J45.909 Unspecified asthma, uncomplicated; F17.210 Nicotine dependence, cigarettes, uncomplicated; W26.9XXA Contact with unspecified sharp object(s), initial encounter
CPT/HCPCS: 99282

== ENCOUNTER 2021-05-01 20:11 | Emergency (ER) | payer OTHER ==
[~2021-05-01] VITALS: Ht 154.9 cm; Wt 68.0 kg
== END 2021-05-01 20:52 | disposition home or self-care (01) ==
LOC: ER 20:11
DX: L98.8 Other specified disorders of the skin and subcutaneous tissue (principal); F17.210 Nicotine dependence, cigarettes, uncomplicated; F15.90 Other stimulant use, unspecified, uncomplicated; H93.8X3 Other specified disorders of ear, bilateral; J45.909 Unspecified asthma, uncomplicated; Z79.899 Other long term (current) drug therapy
CPT/HCPCS: 99282

== ENCOUNTER 2021-05-06 19:07 | Emergency (ER) | payer OTHER ==
[~2021-05-06] VITALS: Ht 154.9 cm; Wt 68.0 kg
== END 2021-05-06 19:30 | disposition home or self-care (01) ==
LOC: ER 19:07
DX: F15.10 Other stimulant abuse, uncomplicated (principal); F17.210 Nicotine dependence, cigarettes, uncomplicated; J45.909 Unspecified asthma, uncomplicated; Z79.899 Other long term (current) drug therapy
CPT/HCPCS: 99282

== ENCOUNTER 2021-05-23 23:17 | Emergency (ER) | payer OTHER ==
[~2021-05-23] VITALS: Ht 154.9 cm; Wt 160.0 kg
== END 2021-05-24 03:13 | disposition other institution (70) ==
LOC: ER 23:17
DX: R51.9 Headache, unspecified (principal); J45.909 Unspecified asthma, uncomplicated; F17.210 Nicotine dependence, cigarettes, uncomplicated; Z79.899 Other long term (current) drug therapy
CPT/HCPCS: 96372; 99283; A9270; J1200; J1885

== ENCOUNTER 2021-07-04 01:11 | Emergency (ER) | payer OTHER ==
[~2021-07-04] VITALS: Ht 154.9 cm; Wt 67.1 kg
[2021-07-04] MEDS ORDERED: Bactrim Ds Tab1 EACH PO (02:22)
== END 2021-07-04 02:33 | disposition home or self-care (01) ==
LOC: ER 01:11
DX: L02.415 Cutaneous abscess of right lower limb (principal); J45.909 Unspecified asthma, uncomplicated; F17.210 Nicotine dependence, cigarettes, uncomplicated; Z79.899 Other long term (current) drug therapy
CPT/HCPCS: 99282; A9270

== ENCOUNTER 2021-07-11 23:46 | Emergency (ER) | payer OTHER ==
[~2021-07-11] VITALS: Ht 154.9 cm; Wt 59.0 kg
[~2021-07-11 23:46] MED LIST changes: +Bactrim Ds Tab1 EACH PO
== END 2021-07-12 02:51 | disposition home or self-care (01) ==
LOC: ER 23:46
DX: R10.84 Generalized abdominal pain (principal); R11.2 Nausea with vomiting, unspecified; F19.10 Other psychoactive substance abuse, uncomplicated; K21.9 Gastro-esophageal reflux disease without esophagitis; F17.210 Nicotine dependence, cigarettes, uncomplicated
CPT/HCPCS: 99283; A9270

== ENCOUNTER 2021-07-24 19:05 | Emergency (ER) | payer OTHER ==
[~2021-07-24] VITALS: Ht 154.9 cm; Wt 63.5 kg
[2021-07-24] MEDS ORDERED: DOCU100 PO (22:22)
[2021-07-24] MEDS ORDERED: OXYB5 PO (22:22)
== END 2021-07-25 04:38 | disposition home or self-care (01) ==
LOC: ER 19:05
DX: N81.2 Incomplete uterovaginal prolapse (principal); R32 Unspecified urinary incontinence; J45.909 Unspecified asthma, uncomplicated; F17.210 Nicotine dependence, cigarettes, uncomplicated
CPT/HCPCS: 87491; 99283; A9270

== ENCOUNTER 2021-08-12 01:41 | Emergency (ER) | payer OTHER ==
[~2021-08-12] VITALS: Ht 154.9 cm; Wt 63.5 kg
[~2021-08-12 01:41] MED LIST changes: +DOCU100 PO; +OXYB5 PO
[2021-08-12] MEDS ORDERED: BUSP10 PO (01:59)
[2021-08-12] MEDS ORDERED: OLAN5 PO (02:00)
== END 2021-08-12 02:00 | disposition home or self-care (01) ==
LOC: ER 01:41
DX: L98.9 Disorder of the skin and subcutaneous tissue, unspecified (principal); J45.909 Unspecified asthma, uncomplicated; K21.9 Gastro-esophageal reflux disease without esophagitis; F17.210 Nicotine dependence, cigarettes, uncomplicated; Z79.899 Other long term (current) drug therapy
CPT/HCPCS: 99282

== ENCOUNTER 2021-09-25 06:38 | Emergency (ER) | payer OTHER ==
[~2021-09-25] VITALS: Ht 154.9 cm; Wt 63.5 kg
[~2021-09-25 06:38] MED LIST changes: +OLAN5 PO
== END 2021-09-25 07:00 | disposition home or self-care (01) ==
LOC: ER 06:38
DX: L85.3 Xerosis cutis (principal); J45.909 Unspecified asthma, uncomplicated; K21.9 Gastro-esophageal reflux disease without esophagitis; F17.210 Nicotine dependence, cigarettes, uncomplicated
CPT/HCPCS: 99282

== ENCOUNTER 2022-02-25 23:26 | Emergency (ER) | payer OTHER ==
[~2022-02-25] VITALS: Ht 154.9 cm; Wt 65.8 kg
[2022-02-26] MEDS ORDERED: SERT100 PO (00:06)
[2022-02-26] MEDS ORDERED: ZYPREXA2.5 MG PO (00:07)
== END 2022-02-26 02:03 | disposition home or self-care (01) ==
LOC: ER 23:26
DX: R51.9 Headache, unspecified (principal); F17.210 Nicotine dependence, cigarettes, uncomplicated; Z79.899 Other long term (current) drug therapy; Z53.21 Procedure and treatment not carried out due to patient leaving prior to being seen by health care provider
CPT/HCPCS: 96374; 99283; A9270; J0780; J1885; J7030

== ENCOUNTER → 2022-07-25 | Outpatient (CLI) | payer OTHER ==
[~2022-07-25] MED LIST changes: +KETO10 PO; +SERT100 PO; +ZYPREXA2.5 MG PO
[2022-07-27 14:11] LABS: HPV 16 Negative (Negative); HPV 18 Negative (Negative); HPV OTHER HR TYPES Negative (Negative)
== END | disposition home or self-care (01) ==
LOC: LAB SHORT 13:04 → LAB 13:04
PROVIDERS: Family Medicine
DX: Z01.419 Encounter for gynecological examination (general) (routine) without abnormal findings (principal)
CPT/HCPCS: 87624; G0123

== ENCOUNTER 2023-03-22 12:35 | Emergency (ER) | payer OTHER ==
[~2023-03-22] VITALS: Ht 154.9 cm; Wt 83.5 kg
[2023-03-22 13:59] LABS: BASOPHILS ABSOLUTE AUTO 0.04 K/mm3 (0.00-0.23); BASOPHILS PERCENT AUTO 1 % (0-2); EOSINOPHILS ABSOLUTE AUTO 0.11 K/mm3 (0.00-0.68); EOSINOPHILS PERCENT AUTO 1 % (0-6); Hematocrit 38.9 % (33.0-51.0); IMMATURE GRAN ABSOLUTE AUTO 0.03 K/mm3 (0.00-0.10); IMMATURE GRAN PERCENT AUTO 0 % (0-1); LYMPHOCYTES ABSOLUTE AUTO 2.41 K/mm3 (0.84-5.20); LYMPHOCYTES PERCENT AUTO 31 % (21-46); MONOCYTES ABSOLUTE AUTO 0.51 K/mm3 (0.16-1.47); MONOCYTES PERCENT AUTO 7 % (4-13); Mean Corpuscular HGB 31.7 pg (26.0-34.0); Mean Corpuscular HGB Conc 33.4 g/dL (31.5-36.5); Mean Corpuscular Volume 95 fL (80-100); Mean Platelet Volume 9.8 fL (9.1-12.4); NEUTROPHILS ABSOLUTE AUTO 4.63 K/mm3 (1.96-9.15); NEUTROPHILS PERCENT AUTO 60 % (41-73); Platelet Count 407 K/mm3 (150-400); RDW Coefficient Variation 12.4 % (11.7-14.2); RDW Standard Deviation 43.3 fL (35.1-46.3); White Blood Cell Count 7.73 K/mm3 (4.00-11.30)
[2023-03-22 14:21] LABS: Albumin, Blood 3.7 g/dL (3.4-5.0); Albumin/Globulin Ratio 1.1 (0.8-1.8); Bilirubin, Total 0.3 mg/dL (0.1-1.0); Bun/Creatinine Ratio 9.3 (12.0-20.0); Calcium, Blood 8.6 mg/dL (8.5-10.1); Creatinine, Blood 0.76 mg/dL (0.40-1.00); Globulin, Blood 3.4 g/dL (2.2-4.0); Total Protein, Blood 7.1 g/dL (6.4-8.2)
[2023-03-22] MEDS ORDERED: PRAZ5 PO (16:28)
[2023-03-22] MEDS ORDERED: Lamictal150 MG PO (16:28)
[2023-03-22] MEDS ORDERED: DESVENLAFAXINE50 M3 PO (16:28)
[2023-03-22] MEDS ORDERED: Naltrexone HCl50 MG PO (16:28)
[2023-03-22] MEDS ORDERED: Tenex1 MG PO (16:29)
[2023-03-22 18:48] VITALS: BP 112/74
[2023-03-22] MEDS ORDERED: ONDA4 PO (18:49)
[2023-03-22] MEDS ORDERED: OMEP20ER PO (18:51)
== END 2023-03-22 19:00 | disposition home or self-care (01) ==
LOC: ER 12:35
PROVIDERS: Physician Assistant
DX: K92.1 Melena (principal); J45.909 Unspecified asthma, uncomplicated; F17.210 Nicotine dependence, cigarettes, uncomplicated
CPT/HCPCS: 80053; 85025; 86850; 86900; 86901; 96361; 96374; 99284-25; C9113; J2405; J7030

== ENCOUNTER 2025-05-20 20:12 | Emergency (ER) | payer OTHER ==
[~2025-05-20] VITALS: Ht 160 cm; Wt 72.6 kg
[~2025-05-20 20:12] MED LIST changes: +DESVENLAFAXINE50 M3 PO; +Lamictal150 MG PO; +Naltrexone HCl50 MG PO; +OMEP20ER PO; +ONDA4 PO; +PRAZ5 PO; +Tenex1 MG PO
[2025-05-20 21:37] VITALS: BP 150/100
== END 2025-05-20 21:59 | disposition home or self-care (01) ==
LOC: ER 20:12
DX: M27.3 Alveolitis of jaws (principal); J45.909 Unspecified asthma, uncomplicated; F17.210 Nicotine dependence, cigarettes, uncomplicated; Z98.890 Other specified postprocedural states; Z79.899 Other long term (current) drug therapy; Z59.89 Other problems related to housing and economic circumstances
CPT/HCPCS: 99282; A9270